=== PATIENT | male | born 1945 | race Caucasian/White ===

== ENCOUNTER → 2018-11-20 | Outpatient (CLI) | payer MEDICARE, OTHER ==
[~2018-11-20] MED LIST: ARICEPT 5 MG TAB5 MG PO; ASPIR 8181 MG PO; CARTIA XT240 M1 PO; CIALIS20 MG PO; FLOMAX0.4 MG PO; HYDROCHLOROTHIA25 M2 PO; LIPITOR 20 MG T20 M1 PO; METFORMIN HCL500 MG PO; PROSCAR 5MG TABL5 MG PO; QUINAPRIL 20 MG20 MG PO; TROSPIUM CHLORI60 MG PO; VESICARE10 M1 PO; VITAMIN B-12500 MCG PO; VITAMIN B12-FO1 EAC1 PO; VITAMIN B122500 MC1 PO; VITAMIN D31000 UNIT PO; VITAMINC500 PO; XARELTO10 MG PO
--- NOTE | 2018-11-24 16:44 | SLEEP ---
[address] [address] SLEEP STUDY REPORT Name: KENIA THURSTON Room: [facility]#: [id number] Admission: 11/20/18 Attend Phys: Amelia Groves Discharge: Date of : 41 Report #: [id number] THIS REPORT FOR: //name// CC: Amelia Turner Rose Oliviaela [place] This study has been reviewed in its entirety by a board certified sleep specialist DATE OF SERVICE: 11/20/2018 ATTENDING PHYSICIAN: Amelia Groves NP. This patient is 72 years old who weighs 220 pounds with a BMI of 34.5. The patient's Union score was 2. The patient underwent diagnostic sleep study performed at [facility]. During the night study, the patient spent 415 minutes in bed and slept for 154 minutes with a low sleep efficiency of 37%. Sleep latency was 3.9 minutes with a REM latency of 352 minutes. Overall, sleep architecture showed increased stage 1 sleep, normal stage 2 sleep, normal slow wave and reduced REM sleep. During the night study, the patient had 3 apneas, 2 obstructive, and 1 central and 49 hypopneas. The patient's apnea hypopnea index was 20 per hour with a REM index of 51 per hour and a supine index of 37 per hour. EKG monitoring revealed an average heart rate of 43 beats per minute. No sustained arrhythmias observed. PLMS were seen at an index of 55 per hour and 7 per hour caused EEG arousals. Nocturnal oximetry study revealed an average oxygen saturation of 96% with a lowest of 86%. 2.8 minutes were spent in oxygen saturation of 90%. The patient did not meet the criteria for CPAP initiation; however, the patient felt claustrophobic to the CPAP mask. Different masks including full face mask and nasal mask were tried. The study was continued on as diagnostic. IMPRESSION: 1. Moderate sleep apnea-hypopnea syndrome with worsening during supine and REM sleep. Total AHI 20 per hour with a REM AHI of 51 per hour and a supine AHI of 37 per hour. 2. Mild nocturnal hypoxia secondary to obstructive sleep apnea. 3. Severe periodic limb movements. 4. Reduced sleep efficiency resulting from [place] [address] SLEEP STUDY REPORT Name: KENIA THURSTON Room: [facility]#: [id number] Admission: 11/20/18 Attend Phys: Amelia Groves Discharge: Date of : 41 Report #: [id number] RECOMMENDATIONS: 1. Although the patient did meet the criteria for CPAP initiation but the patient was claustrophobic to the CPAP. The patient should be desensitized to the CPAP first and if willing to try later, should be rescheduled for full night CPAP titration study. 2. Once the patient is optimally treated, then the patient will be followed up in 4-6 weeks to assess compliance with CPAP and to document clinical improvement. 3. Alternate treatment option would include use of an oral appliance as recommended by the dentist. 4. The patient's insomnia should be further evaluated and treated if it persists despite effective use of CPAP. 5. PLMS can be treated with dopaminergic agonist agents if the patient is clinically symptomatic. <ELECTRONICALLY SIGNED> By: Shukri Brady MD 11/24/18 1644 01 Hedy Brady MD /nt
== END ==
LOC: M.SLEEPLAB 20:00
DX: G47.33 Obstructive sleep apnea (adult) (pediatric) (principal); G47.39 Other sleep apnea; R09.02 Hypoxemia; Z91.013 Allergy to seafood

== ENCOUNTER 2019-11-05 21:45 | Inpatient (IN) | payer MEDICARE, OTHER ==
[~2019-11-05] VITALS: Ht 165.1 cm; Wt 114.8 kg
[2019-11-05 21:54] VITALS: BP 86/51
[2019-11-05] MEDS ORDERED: DILTIAZEM 24HR360 M1 PO (22:08)
[2019-11-05] MEDS ORDERED: OXYBUTYNIN 5 MG5 M2 PO (22:08)
[2019-11-05 22:19] LABS: ABSOLUTE BASOPHILS 0.2 thou/uL (0.0-0.2); ABSOLUTE EOSINOPHILS 0.1 thou/uL (0.0-0.7); ABSOLUTE LYMPHOCYTES 2.8 thou/uL (0.8-5.3); ABSOLUTE MONOCYTES 0.8 thou/uL (0.0-1.2); ABSOLUTE NEUTROPHILS 14.9 thou/uL (1.6-8.1); BASOPHILS 1.3 %; EOSINOPHILS 0.6 %; HEMOGLOBIN 15.3 gm/dL (14.0-18.0); LYMPHOCYTES 14.8 %; MCH 29.7 pg (26.0-34.0); MCHC 33.2 g/dL (28.0-37.0); MCV 89.5 fL (80.0-100.0); MPV 7.7 fl. (7.2-11.1); NUCLEATED RBCS 0 /100WBC; PLATELET COUNT* 268 thou/uL (150-400); POLYS 79.3 %; RBC 5.14 mil/uL (4.50-6.00); RDW-CV 14.9 % (10.5-14.5); WBC 18.8 thou/uL (4.0-11.0)
[2019-11-05 22:30] LABS: APTT 27.1 Seconds (25.0-31.3); INR 1.3; PROTIME 13.2 Seconds (9.20-11.50)
[2019-11-05 22:37] LABS: CALCIUM 8.8 mg/dL (8.5-10.1); CREATININE 1.6 mg/dL (0.6-1.3); POTASSIUM 3.4 mmol/L (3.5-5.1)
[2019-11-05 22:41] LABS: MAGNESIUM 1.9 mg/dL (1.8-2.4); TOTAL BILIRUBIN 0.9 mg/dL (<0.1-1.0); TOTAL PROTEIN 7.2 g/dL (6.4-8.2)
[2019-11-06] VITALS (19 sets, daily range): BP systolic 110–158; BP diastolic 65–93
[2019-11-06 08:05] LABS: CALCIUM 8.7 mg/dL (8.5-10.1); POTASSIUM 3.9 mmol/L (3.5-5.1)
[2019-11-06 09:29] LABS: CREATININE 1.4 mg/dL (0.6-1.3)
--- NOTE | 2019-11-06 10:33 | EKG ---
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: HELEN : 1945 Requested By: Niranjan Scott Order Number: [id number] MD: Praneeth Villalpando Measurements Intervals [place] Rate: 47 P: -62 ID: [id number] QRS: 57 QRSD: 95 T: 43 QT: 538 QTc: 476 Interpretive Statements atrial fibrillation Borderline low voltage, extremity leads Compared to ECG 04/12/2017 18:33:20 rate has slowed Electronically Signed On 11-06-2019 10:33:06 CDT by Praneeth Villalpando [email or web address] <ELECTRONICALLY SIGNED> By: Praneeth Villalpando MD, FAC 11/06/19 1033 00 00 Praneeth Villalpando MD, [facility]ED WITH [facility] /EPI
--- NOTE | 2019-11-06 14:43 | CON ---
[address] [address] CONSULTATION Name: KENIA THURSTON Room: [address] IN M.R.#: [id number] Admission: 11/05/19 Attend Phys: Cande Ferguson MD Discharge: Date of : 41 Report #: [id number] THIS REPORT FOR: //name// cc: Chiquita Vinson MD, Pamela MD ~ THIS REPORT FOR: //name// CC: Cande Vinson MD DATE OF SERVICE: 11/06/2019 CARDIOLOGY CONSULTATION HISTORY OF PRESENT ILLNESS: The patient is a 73-year-old male who I was asked to see in the hospital today after he was noted to be bradycardic. The history is obtained from the patient as well as the old records. The patient has a long history of permanent atrial fibrillation. He apparently has never been cardioverted. However, apparently last fall during the sleep study, he had an episode of sinus rhythm. He has been chronically anticoagulated. In the past, he developed bradycardia on digoxin, which was discontinued. He is not very active at this time. He has had no history of bleeding problems. There is no history of coronary artery disease. He actually just saw my nurse practitioner, Amelia Groves in September. His rate was controlled at that time on diltiazem. No changes were made in his medications. The patient states he was doing well until yesterday, he felt nauseated, some right upper quadrant pain and he vomited. His brought him to the Emergency Room. He was noted to be bradycardic and hypotensive. He was given fluids. His diltiazem was held. He was moved to the ICU. I was asked to see him for further evaluation and treatment. He denies any history of exertional chest tightness. He does get short of breath with exertion. He has occasional edema. He denies any palpitations. He has had no recent fever or cough. PAST MEDICAL HISTORY: Apparently, he has had a kidney surgery, knee replacement. Apparently, he had a previous stroke. He has hyperlipidemia, hypertension, and diabetes. MEDICATIONS: Include aspirin, Lipitor, diltiazem, Aricept for memory loss, Proscar, Lasix for swelling, hydrochlorothiazide, metformin, Ditropan, Accupril, Flomax, and Xarelto. ALLERGIES: HE HAS A PREVIOUS INTOLERANCE TO SHELLFISH. FAMILY HISTORY: [place] [address] CONSULTATION Name: KENIA THURSTON Room: [address]#: [id number] Admission: 11/05/19 Attend Phys: Cande Ferguson MD Discharge: Date of : 41 Report #: [id number] SOCIAL HISTORY: He is . He and his live here in [place]. He is originally from [place], moved to [facility] when he was a child. 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 Quit smoking years ago, rarely drinks alcohol. REVIEW OF SYSTEMS: He is overweight, being 5 feet 6 inches and weighing 248 pounds. No history of asthma, liver disease, chronic skin condition or psychiatric illness. PHYSICAL EXAMINATION: GENERAL: Revealed an elderly male, lying in bed. He appeared in no distress. VITAL SIGNS: He had a blood pressure of 130/80 and pulse is 70 and regular. He is afebrile. HEENT: He was anicteric. Conjunctivae are pink. Mucous membranes are moist. NECK: Veins do not appear distended. No carotid bruits. Neck supple. CHEST: Clear to auscultation. CARDIOVASCULAR: Irregular rhythm. No significant murmur. ABDOMEN: He had right upper quadrant tenderness. It was soft. EXTREMITIES: Had no edema. Dorsalis pedis pulses are 1+ bilaterally. SKIN: Cool and dry. NEUROLOGIC: Nonfocal. RADIOLOGICAL DATA: His ECG on admission last night showed atrial fibrillation with slow ventricular response rate. No ST or T-wave changes were noted. LABORATORY DATA: His workup in the Emergency Room last night, he had a portable chest x-ray that showed normal heart size, clear lung white, elevation of hemidiaphragm was noted, gaseous distention of the stomach. He actually had a CT scan of the abdomen last night that showed gallbladder enlargement, no evidence of bowel obstruction. He actually had a CT scan of the chest that showed elevation of the left hemidiaphragm, some atelectasis, hiatal hernia, gallbladder distention, and coronary artery calcification. He had a previous carotid Doppler study in 2017 that showed no significant stenosis. He had a nuclear stress test in 2017 that showed ejection fraction of 60%, evidence of diaphragmatic attenuation. No evidence of ischemia. His echocardiogram in 2017 showed ejection fraction of 60% with biatrial enlargement. Echocardiogram last September showed ejection fraction of 60%. Previous sleep study showed evidence of sleep apnea. IMPRESSION AND RECOMMENDATIONS: 1. Atrial fibrillation. Rate noted to be slow on admission. I would hold his diltiazem. Possible vasovagal from nausea and vomiting. I would hold Xarelto at this time since the patient might require surgery. 2. Hypertension. Blood pressure was noted to be low on admission. Possibly related to dehydration and vomiting. I would hold his calcium lencho, diuretic and ESTEPHANIE inhibitor. [facility] [address] [place] [address] CONSULTATION Name: KENIA THURSTON Room: [address] IN M.R.#: [id number] Admission: 11/05/19 Attend Phys: Cande Ferguson MD Discharge: Date of : 41 Report #: [id number] 3. Hyperlipidemia. The patient is on a statin drug. 4. Previous stroke. Possibly related to atrial fibrillation. No residual deficits. 5. Diabetes. The patient is on oral medications. 6. Sleep apnea. The patient is on CPAP. 7. Obesity. 8. Nausea, vomiting, and right upper quadrant pain. Possible cholecystitis. The patient has been seen by Surgery. He appears to have no cardiac contraindication to surgery. I would hold Xarelto for at least 48 hours. I would resume Xarelto after surgery when it is felt to be safe from a surgical standpoint. <ELECTRONICALLY SIGNED> By: Praneeth Villalpando MD, FACC 11/06/19 1443 0844 [id number] Villalpando MD, [facility] /nt
[2019-11-07 04:26] VITALS: BP 123/76
[2019-11-07 04:32] LABS: HEMATOCRIT 44.2 % (42.0-52.0); HEMOGLOBIN 15.3 gm/dL (14.0-18.0); MCH 30.7 pg (26.0-34.0); MCHC 34.6 g/dL (28.0-37.0); MCV 88.5 fL (80.0-100.0); MPV 7.8 fl. (7.2-11.1); RDW-CV 14.7 % (10.5-14.5); WBC 10.3 thou/uL (4.0-11.0)
[2019-11-07 04:37] LABS: ALBUMIN 3.2 g/dL (3.4-5.0); CALCIUM 8.3 mg/dL (8.5-10.1); CREATININE 1.2 mg/dL (0.6-1.3); MAGNESIUM 1.7 mg/dL (1.8-2.4); PHOSPHORUS* 2.4 mg/dL (2.5-4.9); POTASSIUM 3.1 mmol/L (3.5-5.1); TOTAL BILIRUBIN 4.9 mg/dL (<0.1-1.0); TOTAL PROTEIN 6.2 g/dL (6.4-8.2)
[2019-11-07 08:20] VITALS: BP 142/82
[2019-11-07 11:38] VITALS: BP 122/79
[2019-11-07] MEDS ORDERED: DONEPEZIL HCL5 MG PO (12:03)
[2019-11-07] MEDS ORDERED: FUROSEMIDE 20 M20 MG PO (12:04)
[2019-11-07 16:40] VITALS: BP 115/85
[2019-11-07 21:00] VITALS: BP 158/84
[2019-11-08 00:14] VITALS: BP 158/84
[2019-11-08 03:51] LABS: HEMATOCRIT 42.4 % (42.0-52.0); HEMOGLOBIN 14.5 gm/dL (14.0-18.0); MCH 30.3 pg (26.0-34.0); MCHC 34.2 g/dL (28.0-37.0); MCV 88.6 fL (80.0-100.0); MPV 7.5 fl. (7.2-11.1); RBC 4.79 mil/uL (4.50-6.00); RDW-CV 14.9 % (10.5-14.5); WBC 9.6 thou/uL (4.0-11.0)
[2019-11-08 04:34] LABS: ALBUMIN 2.7 g/dL (3.4-5.0); CALCIUM 8.2 mg/dL (8.5-10.1); CREATININE 1.1 mg/dL (0.6-1.3); MAGNESIUM 1.8 mg/dL (1.8-2.4); TOTAL BILIRUBIN 3.7 mg/dL (<0.1-1.0); TOTAL PROTEIN 5.8 g/dL (6.4-8.2)
[2019-11-08 08:00] VITALS: BP 147/96
[2019-11-08 18:20] VITALS: BP 146/82
[2019-11-08 20:47] VITALS: BP 186/85
[2019-11-08 21:40] VITALS: BP 159/95
[2019-11-08 23:57] VITALS: BP 147/80
[2019-11-09 04:00] VITALS: BP 149/90
[2019-11-09 05:49] LABS: HEMOGLOBIN 14.3 gm/dL (14.0-18.0); MCH 30.4 pg (26.0-34.0); MCHC 34.1 g/dL (28.0-37.0); MCV 89.1 fL (80.0-100.0); MPV 7.9 fl. (7.2-11.1); RBC 4.72 mil/uL (4.50-6.00); RDW-CV 14.4 % (10.5-14.5); WBC 11.2 thou/uL (4.0-11.0)
[2019-11-09 06:02] LABS: ALBUMIN 2.9 g/dL (3.4-5.0); CALCIUM 8.4 mg/dL (8.5-10.1); CREATININE 1.2 mg/dL (0.6-1.3); MAGNESIUM 1.8 mg/dL (1.8-2.4); POTASSIUM 3.3 mmol/L (3.5-5.1); TOTAL BILIRUBIN 1.9 mg/dL (<0.1-1.0); TOTAL PROTEIN 6.3 g/dL (6.4-8.2)
[2019-11-09] MEDS ORDERED: ACCUPRIL10 MG PO (09:44)
[2019-11-09] MEDS ORDERED: DILTIAZEM 24HR180 M1 PO (09:44)
[2019-11-09 10:11] VITALS: BP 163/91
[2019-11-09 13:35] VITALS: BP 163/91
[2019-11-09 14:21] VITALS: BP 163/91
[2019-11-09 14:23] VITALS: BP 163/91
--- NOTE | 2019-11-11 10:54 | PATH ---
[address] [address] PATHOLOGY RPT PROCEDURE Name: TEE THURSTON Room: [address] IN M.R.#: [id number] Admission: 11/05/19 Date of : 41 Discharge: 11/09/19 Report #: [id number] Path Case #: [id number] [facility] Accession Number: [id number] . 01 Material submitted: . gallbladder - GALLBLADDER AND CONTENTS . 01 Clinical history: . Cholecystitis . 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 (RUTH ANN:andi; 11/10/2019) MBR 11/10/2019 1543 Local . 02 Electronically signed: . Prateek Ferraro MD, Pathologist NPI- [id number] . 01 Gross description: . The specimen is received in formalin labeled "Gerald, Tee, gallbladder and contents" and consists of a hemorrhagic pink-gonsales and ragged gallbladder measuring 11.8 x 4.8 x 1.9 cm. The margin is inked black. Opening reveals a lumen filled with hemorrhagic red brown bile and 2 mulberry yellow calculi measuring 0.3 cm. The mucosa is hemorrhagic brown gonsales to pink and granular with an average wall thickness of 0.3 cm. No masses are identified. Sales Support Administrator sections are submitted in A1. (SDY; 11/09/2019) SYU/SYU 11/09/2019 1338 Local . 02 Pathologist provided ICD-10: K80.12 . 02 CPT . 346016 Specimen Comment: A courtesy copy of this report has been sent to [phone] Specimen Comment: Report sent to Performed at: 01 [facility] [address] [place] [address] [address], [place], [place] [id number] MD Michelet Varela MD Phone: [phone] Performed at: [address] [place] [address] [address], [place], [place] [id number] MD Prateek Ferraro MD Phone: [phone]
--- NOTE | 2019-11-12 10:22 | OP ---
[address] [address] OPERATIVE REPORT Name: KENIA THURSTON Room: [address] IN .R.#: [id number] Admission: 11/05/19 Attend Phys: Cande Ferguson MD Discharge: 11/09/19 Date of : 41 Report #: [id number] THIS REPORT FOR: //name// cc: Chiquita Vinson MD, Pamela MD ~ THIS REPORT FOR: //name// CC: Cande Vinson DATE OF SERVICE: 11/08/2019 SURGEON: Aamir Butts DO BILINGUAL TEACHER: Gurwinder Mccallum DO PREOPERATIVE DIAGNOSIS: Acute cholecystitis. POSTOPERATIVE DIAGNOSIS: Acute cholecystitis. PROCEDURE: Laparoscopic cholecystectomy. INDICATIONS: The patient is a 73-year-old male who presented to the Emergency Department with abdominal pain and weakness. His pain was incited by eating spicy foods. A CT scan and MRCP revealed acute cholecystitis. Physical exam revealed right upper quadrant tenderness. Operative intervention was indicated. Risks and benefits of surgery were discussed in detail with the patient, the patient's and the patient's daughter. Risks of bleeding, infection, damage to nearby structures including the common bile duct were explained. DESCRIPTION OF PROCEDURE: The patient was taken to the operating theater and placed in supine position. Bilateral SCDs were placed and preoperative antibiotics were given. General anesthesia was induced without complication. The patient's abdomen was prepped and draped in standard sterile fashion. Timeout was performed and all were in agreement. A supraumbilical incision was made using an 11 blade scalpel. Dissection was carried down to the midline fascia using S retractors and then [place]'s. The midline fascia was scored. The abdomen could not be entered bluntly using a hemostat. The peritoneum was attempted to be grasped but could not, so an Optiview entry was done in the left upper quadrant at Garcia's point. A 5 mm incision was made underneath the left costal margin at Garcia's point and the Optiview trocar was used to gain access into the abdominal cavity under direct visualization. The abdomen was then insufflated to 15 mmHg and the camera was reintroduced. No injury to intra-abdominal contents was appreciated upon abdominal entry. The area of attempted abdominal entry in the midline was reviewed and the peritoneum had not been breached. Next, a 12 mm trocar was placed in the [place] [address] OPERATIVE REPORT Name: KENIA THURSTON Room: [address]#: [id number] Admission: 11/05/19 Attend Phys: Cande Ferguson MD Discharge: 11/09/19 Date of : 41 Report #: [id number] position under direct visualization. Next, the patient was placed in the head up, left side down position and a 5 mm trocar was placed in the subxiphoid position under direct visualization. Next, two more 5 mm trocars were placed in the right upper quadrant under direct visualization. The gallbladder was visualized and was significantly distended, edematous with a thick fibrous exudate. The fundus of the gallbladder was grasped and taken anteriorly and cephalad. There were significant omental adhesions. These were taken down bluntly using a suction supervisor cooler service device. Next, Shaina's pouch was grasped and taken medially and superiorly. The lateral gallbladder peritoneum and fibrinous rind were taken down with electrocautery. Next, the Shaina's pouch was taken laterally and inferiorly and a suction supervisor cooler service device was used to sweep the purulent exudate down off of the gallbladder. The rest of the medial dissection was done with the suction supervisor cooler service pushing the inflammatory tissue and exudative tissue down off of the gallbladder towards the portal structures. The cystic duct could be visualized; however, the hepatocystic triangle could not be safely dissected, so a top down approach was used. The fundus was taken caudad and the gallbladder was taken off of the gallbladder fossa using electrocautery. The medial side was then taken off the gallbladder fossa. The cystic artery was encountered. This was seen directly going into gallbladder and was clipped twice proximally and once distally, this was transected using EndoShears. Next, the gallbladder could be completely removed from the gallbladder fossa. There was one structure entering the gallbladder. This was the cystic duct. The cystic plate was completely visualized. The cystic duct was dilated and could not be clipped with the 5 mm clips, so the subxiphoid trocar was then upsized to a 10 mm port and 10 mm clips were used to clip the cystic duct 3 times proximally and once distally. The cystic duct was then transected in between the proximal and distal clips with EndoShears. An EndoCatch bag was introduced and the gallbladder was placed within the EndoCatch bag and sent to the side. Next, the gallbladder fossa was cauterized for hemostasis. The clips were visualized on the cystic duct and cystic artery and were intact. No bile or blood leakage was visualized. Next, the midline 12 mm trocar was removed and the gallbladder in the EndoCatch bag was removed under direct visualization. Next, the midline trocar was closed using a [id number] 0 Vicryl and a PMI under direct visualization. An additional single interrupted 0 Vicryl stitch was used using a PMI device as well as to close the defect. Next, all ports were removed under direct visualization and the abdomen was completely desufflated. The midline incision was closed using 3-0 Vicryl deep dermal interrupted fashion. All skin incisions were closed using 4-0 Monocryl and dressed with Dermabond. This concluded the procedure. All sponge, needle and instrument counts were correct x 2. COMPLICATIONS: None. FINDINGS: Distended, edematous and [place] [address] OPERATIVE REPORT Name: KENIA THURSTON Room: [address]#: [id number] Admission: 11/05/19 Attend Phys: Cande Ferguson MD Discharge: 11/09/19 Date of : 41 Report #: [id number] SPECIMENS: Gallbladder. DRAINS: None. ESTIMATED BLOOD LOSS: 20 mL. DISPOSITION: The patient was taken to the PACU after successful extubation in the operating theater. <ELECTRONICALLY SIGNED> By: Aamir Butts DO 11/12/19 1022 2155 [id number] Butts DO /nt
== END 2019-11-09 15:41 | disposition home or self-care (01) | DRG 417 ==
LOC: M.ERS 21:45 → M.TBA-ER 23:43 → M.ICU 23:43 → M.ORTHSURG 23:43 → M.ICU 11-06 00:25 → M.ORTHSURG 11-07 17:00
PROVIDERS: Emergency Medicine Emergency Medical Services; Internal Medicine; Pediatrics; ADMIT Internal Medicine; ATTEND Internal Medicine
PROC: 0FT44ZZ Resection of Gallbladder, Percutaneous Endoscopic Approach (ICD-10-PCS; principal; 2019-11-08)
DX: K80.00 Calculus of gallbladder with acute cholecystitis without obstruction (principal); N17.0 Acute kidney failure with tubular necrosis; R65.11 Systemic inflammatory response syndrome (SIRS) of non-infectious origin with acute organ dysfunction; I48.21 Permanent atrial fibrillation; Z68.41 Body mass index [BMI] 40.0-44.9, adult; D68.69 Other thrombophilia; I48.20 Chronic atrial fibrillation, unspecified; I10 Essential (primary) hypertension; E11.9 Type 2 diabetes mellitus without complications; K66.0 Peritoneal adhesions (postprocedural) (postinfection); E66.01 Morbid (severe) obesity due to excess calories; E87.6 Hypokalemia; E78.5 Hyperlipidemia, unspecified; K82.8 Other specified diseases of gallbladder; N40.0 Benign prostatic hyperplasia without lower urinary tract symptoms; G47.30 Sleep apnea, unspecified; E78.00 Pure hypercholesterolemia, unspecified; Z96.651 Presence of right artificial knee joint; Z79.84 Long term (current) use of oral hypoglycemic drugs; Z79.899 Other long term (current) drug therapy; Z79.82 Long term (current) use of aspirin; Z79.01 Long term (current) use of anticoagulants; Z88.8 Allergy status to other drugs, medicaments and biological substances; Z91.013 Allergy to seafood; Z86.73 Personal history of transient ischemic attack (TIA), and cerebral infarction without residual deficits; Z90.5 Acquired absence of kidney; Z03.818 Encounter for observation for suspected exposure to other biological agents ruled out